=== PATIENT | female | born 1940 | race Caucasian/White ===

== ENCOUNTER → 2018-07-31 | Outpatient (REF) | payer MEDICARE ==
[~2018-07-31] MED LIST: AMITRIPTYLIN25 MG PO; AMLODIPINE5 MG PO; CHILD ASA81 MG OR; CURCUMIN 95500 MG; DITROPAN XL5 MG PO; FISH OIL1000 MG OR; LIPITOR10 M1 PO; LOSARTAN POT50 MG PO; MEDDOSEPAK PO; MELATONIN10 M1; METOPROLOL50 M1 PO; PROTONIX40 M2 PO; SINGULAIR10 MG PO; TAMOXIFEN10 MG OR
[2018-07-31 07:42] LABS: HEMATOCRIT 39.1 % (37.0-47.0); MEAN CELL VOLUME 90.7 fL CALC (80.0-100.0); MEAN CORPUSCULAR HGB 27.8 pG CALC (26.0-32.0); MEAN CORPUSCULAR HGB CONC 30.7 g/L CALC (32.0-36.0); RED BLOOD COUNT 4.31 mill/uL (4.20-5.60); RED CELL DISTRI WIDTH 15.7 % (11.5-15.5)
[2018-07-31 08:15] LABS: ALBUMIN 4.1 g/dL (3.2-5.0); ALKALINE PHOSPHATASE 85 u/l (38-126); ANION GAP 13 (6-22 (CALC)); BILIRUBIN, TOTAL 0.4 mg/dL (0.0-1.4); BUN 17 mg/dL (8-23); BUN/CREATININE RATIO 24 (12-20 (CALC)); CALCULATED LDLCHOLESTEROL 84 mg/dL (62-129 (CALC)); CARBON DIOXIDE 28 mmol/l (22-30); CHLORIDE 104 mmol/l (95-108); CHOLESTEROL HDL RATIO 3.5 (<4.4 (CALC)); CREATININE 0.7 mg/dL (0.5-1.0); GFR > 60 ML/MIN (>=60 (CALC)); GFR FOR AFR.AMER. > 60 ML/MIN (>=60 (CALC)); HDL CHOLESTEROL 51 mg/dL (>=40); POTASSIUM 4.3 mmol/l (3.5-5.1); SGOT/AST 24 u/l (9-36); SODIUM 141 mmol/l (137-146); TOTAL CHOLESTEROL 179 mg/dl (0-199); TOTAL PROTEIN 6.3 g/dL (6.3-8.2); TOTAL TRIGLYCERIDES 218 mg/dl (30-149); VLDL CHOLESTROL 44 mg/dl (0-48 (CALC))
[2018-07-31 08:46] LABS: TSH, 3RD GENERATION 3.59 uIU/mL (0.47 - 4.68)
== END | disposition home or self-care (01) ==
LOC: LAB 06:42
PROVIDERS: ATTEND Nurse Practitioner
DX: I10 Essential (primary) hypertension (principal)

== ENCOUNTER → 2021-01-24 | Outpatient (REF) | payer MEDICARE ==
[2021-01-24 10:43] LABS: HEMATOCRIT 41.6 % (37.0-47.0); HEMOGLOBIN 12.8 g/dl (12.0-16.0); MEAN CELL VOLUME 96.1 fL CALC (80.0-100.0); MEAN CORPUSCULAR HGB 29.6 pG CALC (26.0-32.0); MEAN CORPUSCULAR HGB CONC 30.8 g/dL CAL (32.0-36.0); NEUT# 7.48 thou/uL (2.00-7.15); RED BLOOD COUNT 4.33 mill/uL (4.20-5.60); RED CELL DISTRI WIDTH 14.7 % (11.5-15.5)
[2021-01-24 11:00] LABS: ALBUMIN 3.9 g/dL (3.2-5.0); ALKALINE PHOSPHATASE 71 u/l (38-126); ANION GAP 12 (6-22 (CALC)); BILIRUBIN, TOTAL 0.4 mg/dL (0.0-1.4); BUN 22 mg/dL (8-23); BUN/CREATININE RATIO 26 (12-20 (CALC)); CARBON DIOXIDE 29 mmol/l (22-30); CHLORIDE 100 mmol/l (95-108); CREATININE 0.9 mg/dL (0.5-1.0); GFR 60 ML/MIN (>=60 (CALC)); GFR FOR AFR.AMER. > 60 ML/MIN (>=60 (CALC)); POTASSIUM 4.8 mmol/l (3.5-5.1); SGOT/AST 21 u/l (9-36); SODIUM 136 mmol/l (137-146); TOTAL PROTEIN 6.5 g/dL (6.3-8.2)
== END | disposition home or self-care (01) ==
LOC: LAB 09:21
PROVIDERS: ATTEND Internal Medicine
DX: E53.8 Deficiency of other specified B group vitamins (principal); E78.2 Mixed hyperlipidemia

== ENCOUNTER 2022-04-26 14:11 | Emergency (ER) | payer MEDICARE ==
[~2022-04-26] VITALS: Ht 165.1 cm; Wt 95.5 kg
[2022-04-26 14:44] VITALS: BP 129/111
[2022-04-26 15:01] LABS: HEMATOCRIT 34.6 % (37.0-47.0); HEMOGLOBIN 11.1 g/dl (12.0-16.0); IMMATURE GRANULOCYTES 2.7 % (0.0-5.0); MEAN CELL VOLUME 92.8 fL CALC (80.0-100.0); MEAN CORPUSCULAR HGB 29.8 pG CALC (26.0-32.0); MEAN CORPUSCULAR HGB CONC 32.1 g/dL CAL (32.0-36.0); NEUT# 8.12 thou/uL (2.00-7.15); RED BLOOD COUNT 3.73 mill/uL (4.20-5.60); RED CELL DISTRI WIDTH 15.1 % (11.5-15.5)
[2022-04-26 15:21] LABS: ALBUMIN 4.2 g/dL (3.2-5.0); ALKALINE PHOSPHATASE 86 u/l (38-126); BILIRUBIN, TOTAL 0.5 mg/dL (0.0-1.4); BUN 19 mg/dL (8-23); BUN/CREATININE RATIO 18 (12-20 (CALC)); CHLORIDE 105 mmol/l (95-108); CREATININE 1.1 mg/dL (0.5-1.0); GFR FOR AFR.AMER. 58 ML/MIN (>=60 (CALC)); GFR OTHER RACES 48 ML/MIN (>=60 (CALC)); POTASSIUM 4.3 mmol/l (3.5-5.1); SGOT/AST 28 u/l (9-36); SODIUM 141 mmol/l (137-146)
[2022-04-26 15:27] LABS: ANION GAP 9 (6-22 (CALC)); CARBON DIOXIDE 31 mmol/l (22-30)
[2022-04-26 16:14] VITALS: BP 160/75
[2022-04-26 16:32] VITALS: BP 167/71
[2022-04-26 17:21] VITALS: BP 167/71
[2022-04-26] MEDS ORDERED: PREDNISONE50 MG PO (17:32)
== END 2022-04-26 17:24 | disposition home or self-care (01) ==
LOC: ED 14:11
PROVIDERS: Family Medicine
DX: R06.02 Shortness of breath (principal); R91.8 Other nonspecific abnormal finding of lung field; I11.0 Hypertensive heart disease with heart failure; I50.9 Heart failure, unspecified; E66.9 Obesity, unspecified; Z99.81 Dependence on supplemental oxygen
CPT/HCPCS: Q9967

== ENCOUNTER 2024-05-25 22:07 | Inpatient (IN) | payer MEDICARE ==
[~2024-05-25] VITALS: Ht 157.5 cm; Wt 85.6 kg
[~2024-05-25 22:07] MED LIST changes: +ADVAIR DISK1 INH; +ASPIRINCHW 81MG PO; +ATORVASTATIN CA10 MG PO; +COZAAR50 MG PO; +CVS MAGNESIUM500 MG; +ELAVIL25 M1 PO; +LASIX 20 MG TAB20 MG PO; +MELOXICAM7.5 MG PO; +METOPROLOL SUC200 MG PO; +OXY1; +PREDNISONE50 MG PO
--- NOTE | 2024-05-25 22:10 | NUR ---
PT TO RM 9 VIA WHEELCHAIR
[2024-05-25] MEDS ORDERED: methylPREDNISolone SODIUM SUCC 125 MG/2 ML SDV IV ONE (22:25)
[2024-05-25] MEDS ORDERED: FUROSEMIDE 40 MG/4 ML SDV IV ONE (22:25)
[2024-05-25] MEDS ORDERED: ALBUTEROL SULFATE 2.5 MG VIAL IN ONE (22:25)
[2024-05-25] MEDS ORDERED: IPRATROPIUM-Albuterol 0.5MG-2.5MG/3 ML NEB ONE (22:25)
[2024-05-25 22:31] VITALS: BP 149/79
[2024-05-25 22:46] VITALS: BP 129/94
[2024-05-25 22:47] LABS: BASO% 0.2 % (0-3); EOS% 0.5 % (0-8); HEMOGLOBIN 10.8 g/dl (12.0-16.0); IMMATURE GRANULOCYTES 1.4 % (0.0-5.0); LYMPH% 14.2 % (15-41); MEAN CELL VOLUME 93.6 fL CALC (80.0-100.0); MEAN CORPUSCULAR HGB 28.9 pG CALC (26.0-32.0); MEAN CORPUSCULAR HGB CONC 30.9 g/dL CAL (32.0-36.0); MONO% 11.7 % (2-13); NEUT# 6.59 thou/uL (2.00-7.15); RED BLOOD COUNT 3.74 mill/uL (4.20-5.60); RED CELL DISTRI WIDTH 15.2 % (11.5-15.5)
[2024-05-25 23:01] VITALS: BP 135/85
[2024-05-25 23:02] LABS: ALBUMIN 4.3 g/dL (3.2-5.0); ANION GAP 10 (6-22 (CALC)); BILIRUBIN, TOTAL 0.7 mg/dL (0.02-1.3); BUN 21 mg/dL (8-23); BUN/CREATININE RATIO 20 (12-20 (CALC)); CARBON DIOXIDE 29 mmol/l (22-30); CHLORIDE 106 mmol/l (95-108); ESTIMATED GFR 56 ML/MIN (>=90 (CALC)); POTASSIUM 4.4 mmol/l (3.5-5.1); SODIUM 140 mmol/l (137-146); TOTAL PROTEIN 7.1 g/dL (6.3-8.2)
[2024-05-25 23:10] LABS: INTERNATIONAL NORMALIZED RATIO 1.1 RATIO (0.7-1.3)
[2024-05-25] MEDS ORDERED: SODIUM CHLORIDE 0.9% 250 ML IV PRN (23:15)
[2024-05-25] MEDS ORDERED: DILTIAZEM HCL 125 MG in SODIUM CHLORIDE 0.9% 100 ML IV ONE (23:15)
[2024-05-25] MEDS ORDERED: AZITHROMYCIN 500 MG in SODIUM CHLORIDE 0.9% 500 ML IV ONE (23:15)
[2024-05-25] MEDS ORDERED: dilTIAZem HCL 50 MG/10 ML SDV IV ONE (23:15)
[2024-05-25] MEDS ORDERED: cefTRIAXone SODIUM 2 GM in SODIUM CHLORIDE 0.9% 100 ML IV ONE (23:15)
[2024-05-25 23:16] VITALS: BP 134/75
[2024-05-25 23:21] LABS: D-DIMER 0.95 mg/L (0.19-0.60)
[2024-05-25 23:23] LABS: PROTHROMBIN TIME 11.5 SECONDS (9.0-12.5)
[2024-05-25 23:26] LABS: ALKALINE PHOSPHATASE 116 u/l (38-126); SGOT/AST 53 u/l (9-36)
[2024-05-25 23:54] VITALS: BP 130/74
[2024-05-26] VITALS (266 sets, daily range): BP systolic 59–171; BP diastolic 35–131
[2024-05-26 00:04] LABS: TSH, 3RD GENERATION 4.49 uIU/mL (0.47 - 4.68)
--- NOTE | 2024-05-26 00:42 | NUR ---
PATIENT ASSISTED TO BATHROOM AT THIS TIME.
[2024-05-26] MEDS ORDERED: dilTIAZem HCL 50 MG/10 ML SDV IV ONE (01:20)
[2024-05-26] MEDS ORDERED: ONDANSETRON 4 MG/TAB ODT PO PRN (02:55)
[2024-05-26] MEDS ORDERED: ONDANSETRON HCl 4 MG/2 ML SDV IV PRN (02:55)
[2024-05-26] MEDS ORDERED: IBUPROFEN 800 MG/TAB PO PRN (02:55)
[2024-05-26] MEDS ORDERED: ALUM & MAG HYDROX-SIMETHICONE 30 ML PO PRN (02:55)
[2024-05-26] MEDS ORDERED: FAMOTIDINE 10MG/ML 2ML SDV IV PRN (02:55)
[2024-05-26] MEDS ORDERED: Polyethylene Glycol 3350 17 GM/PKT PO PRN (02:55)
--- NOTE | 2024-05-26 03:00 | NUR ---
PATIENT TO BE A HOLD IN ED, NO AVAILABLE ICU BEDS.
[2024-05-26] MEDS ORDERED: ENOXAPARIN SODIUM 80 MG/0.8 ML SYR SC SCH (03:47)
--- NOTE | 2024-05-26 05:24 | NUR ---
PATIENT RESTING IN BED, NAD. REMAINS ON 10MG/HR OF CARDIZEM. HR AFIB 90'S LOW 100'S
[2024-05-26] MEDS ORDERED: FUROSEMIDE 40 MG/4 ML SDV IV SCH (06:00)
--- NOTE | 2024-05-26 06:49 | NUR ---
PATIENT ASSITED TO BSC
--- NOTE | 2024-05-26 07:32 | NUR ---
assumed care. pt alert, oriented Xs 4, cadizem at 10 currently. Pt c/o difficultyresting but states she is breathign better.
--- NOTE | 2024-05-26 08:29 | NUR ---
pt AFib HR 90-112 cardizem to 15 mg
--- NOTE | 2024-05-26 10:40 | NUR ---
cardizem complete pt remains Afib, betweens 95-123. provider contacted, order to continue cardizem
[2024-05-26] MEDS ORDERED: SODIUM CHLORIDE 0.9% 100 ML IV ONE (10:54)
[2024-05-26] MEDS ORDERED: DILTIAZEM HCL 125 MG in SODIUM CHLORIDE 0.9% 100 ML IV PRN (11:00)
[2024-05-26] MEDS ORDERED: SODIUM CHLORIDE 0.9% 500 ML IV PRN (11:15)
--- NOTE | 2024-05-26 11:16 | NUR ---
pharmacy contacted for metoprolol. Currently unavailable in ED
[2024-05-26] MEDS ORDERED: METOPROLOL SUCCINATE 100 MG/TAB PO SCH (12:00)
[2024-05-26] MEDS ORDERED: MELOXICAM PO PRN (13:00)
--- NOTE | 2024-05-26 13:06 | NUR ---
DR FELIX AT BEDSIDE FOR EVALUATION
--- NOTE | 2024-05-26 13:41 | NUR ---
Pt alert, oriented XS 4. daughter at bedside. Pt with with no additional complaints at this time
[2024-05-26] MEDS ORDERED: LOSARTAN Potassium 50 MG/TAB PO SCH (15:00)
--- NOTE | 2024-05-26 18:42 | NUR ---
pt alert, oreientd XS 4 up to bedside commode with steady gait.
--- NOTE | 2024-05-26 19:15 | NUR ---
REPORT RECEIVED FROM Yair NEIL RN
--- NOTE | 2024-05-26 20:26 | NUR ---
PATIENT ARRIVED TO THE UNIT VIA STRETCHER ACCOMPANIED BY DALJIT CONROY. PATIENT AMBULATED FROM BED TO STRETCHER WITH MINIMAL ASSISTANCE AND WITHOUT USE OF CANE AT BEDSIDE.
--- NOTE | 2024-05-26 20:30 | NUR ---
PATIENT TO ICU ROOM 4 VIA STRETCHER. SHE AMBULATED FROM STRETCHER TO BED WITH STEADY GAIT. SHE IS NOTED A FIB IN THE 80S ON THE MONITOR. CARDIZEM NOTED RUNNING AT 10 AT THIS TIME. NO ACUTE DISTRESS NOTED. SHE DENIES ANY PAIN OR DISCOMFORT. SHE IS A/O X3. LUNGS CTA. BOWEL SOUNDS ACTIVE IN ALL FOUR QUADS. NO EDEMA NOTED. SKIN INTACT. PATIENT STATED SHE HAS NOT SLEPT IN 3 DAYS, WILL CONTACT THE DOCTOR FOR SLEEP AID. BED LOCKED, IN LOW POSITION. CALL LIGHT WITHIN REACH.
--- NOTE | 2024-05-26 20:35 | NUR ---
CARDIZEM DECREASED TO 5.
--- NOTE | 2024-05-26 20:38 | NUR ---
PATIENT TO ICU ROOM 4
--- NOTE | 2024-05-26 20:50 | NUR ---
CARDIZEM TURNED OFF.
[2024-05-26] MEDS ORDERED: ATORVASTATIN CALCIUM 10 MG/TAB PO SCH (21:00)
[2024-05-26] MEDS ORDERED: FLUTICASONE/SALMETEROL 250 MCG/50 MCG PER DOSE INH IN SCH (21:00)
--- NOTE | 2024-05-26 22:00 | NUR ---
PATIENT RECEIVED SLEEPING MEDICATIONS. CARDIZEM DRIP STILL OFF AT THIS TIME. PATIENT IS AFIB CONTROLLED AT THIS TIME. NO ACUTE DISTRESS NOTED. BED LOCKED. IN LOW POSITION. CALL LIGHT WITHIN REACH.
[2024-05-26] MEDS ORDERED: Zaleplon 5 MG/CAP PO PRN (23:35)
[2024-05-27] VITALS (208 sets, daily range): BP systolic 69–174; BP diastolic 45–151
[2024-05-27] MEDS ORDERED: AZITHROMYCIN 500 MG in SODIUM CHLORIDE 0.9% 250 ML IV SCH
--- NOTE | 2024-05-27 | NUR ---
PATIENT SLEEPING AT THIS TIME. SHE AFIB CONTROLLED AT THIS TIME. NO ACUTE DISTRESS NOTED. BED LOCKED IN LOW POSITION CALL LIGHT WITHIN REACH.
--- NOTE | 2024-05-27 04:00 | NUR ---
PATIENT SLEEPING WITH NO ACUTE DISTRESS NOTED.
[2024-05-27 05:43] LABS: BASO% 0.2 % (0-3); HEMATOCRIT 33.9 % (37.0-47.0); HEMOGLOBIN 10.7 g/dl (12.0-16.0); IMMATURE GRANULOCYTES 1.5 % (0.0-5.0); LYMPH% 8.7 % (15-41); MEAN CELL VOLUME 93.6 fL CALC (80.0-100.0); MEAN CORPUSCULAR HGB 29.6 pG CALC (26.0-32.0); MEAN CORPUSCULAR HGB CONC 31.6 g/dL CAL (32.0-36.0); MONO% 12.3 % (2-13); NEUT# 9.58 thou/uL (2.00-7.15); NEUT% 77.3 % (42-76); RED BLOOD COUNT 3.62 mill/uL (4.20-5.60); RED CELL DISTRI WIDTH 15.4 % (11.5-15.5)
[2024-05-27 05:54] LABS: ALBUMIN 3.8 g/dL (3.2-5.0); BILIRUBIN, TOTAL 0.6 mg/dL (0.02-1.3); CREATININE 0.8 mg/dL (0.5-1.0); POTASSIUM 4.3 mmol/l (3.5-5.1); TOTAL PROTEIN 6.2 g/dL (6.3-8.2)
--- NOTE | 2024-05-27 07:20 | NUR ---
PT LAYING IN BED WATCHING TV, PT IS A&O X3, PUPILS PERRR, RESP. EVEN AND UNLABORED, LUNGS ARE CLEAR, ABD DISTENDED AND SOFT WITH ACTIVE BOWEL SOUNDS, STRONG RADIAL PULSES, WEAK PEDAL PULSES, 20G RAC IV SL, 20G LAC IV SL, NORMAL S1 S2 HEART SOUNDS, TELE MONITOR IN PLACE, SAFETY MEASURES REINFORCED, CALL SALTER WITHIN REACH
--- NOTE | 2024-05-27 07:21 | NUR ---
REPORT GIVENT TO ONCOMING NURSE.
[2024-05-27] MEDS ORDERED: AMITRIPTYLINE HCL 25 MG TAB PO SCH (09:00)
[2024-05-27] MEDS ORDERED: METOPROLOL SUCCINATE 100 MG/TAB PO SCH (09:00)
[2024-05-27] MEDS ORDERED: ASPIRIN 81 MG/TAB PO SCH (09:00)
[2024-05-27] MEDS ORDERED: MONTELUKAST SODIUM 10 MG/TAB PO SCH (09:00)
[2024-05-27] MEDS ORDERED: FUROSEMIDE 40 MG/TAB PO SCH (09:00)
[2024-05-27] MEDS ORDERED: FUROSEMIDE 20 MG/TAB PO SCH (09:00)
--- NOTE | 2024-05-27 12:00 | NUR ---
PT SITTING ON THE SIDE OF THE BED TALKING TO VISITORS, NO S/S OF DISTRESS AT THIS TIME, CALL SALTER WITHIN REACH
--- NOTE | 2024-05-27 16:00 | NUR ---
PT SITTING UP ON THE SIDE OF THE BED TALKING TO VISITOR, PT DENIES ANY NEEDS AT THIS TIME, CALL SALTER WITHIN REACH
--- NOTE | 2024-05-27 18:07 | NUR ---
pt arrive to unit via staff/wheelchair transport, pt has her cane with her, x1 assist to standing scale then to the bed with no complaints.
--- NOTE | 2024-05-27 18:12 | NUR ---
PT IS AOX3, RESPIRATIONS ARE EVEN AND UNLABORED ON ROOM AIR, LUNGS ARE DIM AT BILATERAL BASES, CLEAR UPPER RIGHT/UPPER LEFT LOBES. BOWEL SOUNDS ARE ACTIVE, PEDAL; PULSES ARE PALPABLE TO TOUCH, PT DENIES PAIN AT THIS TIME.
[2024-05-27] MEDS ORDERED: APIXABAN BASE 5 MG TAB PO SCH (22:00)
[2024-05-28] VITALS (8 sets, daily range): BP systolic 123–154; BP diastolic 51–67
[2024-05-28 05:17] LABS: BASO% 0.2 % (0-3); HEMATOCRIT 30.7 % (37.0-47.0); HEMOGLOBIN 9.7 g/dl (12.0-16.0); IMMATURE GRANULOCYTES 0.9 % (0.0-5.0); LYMPH% 21.5 % (15-41); MEAN CELL VOLUME 95.6 fL CALC (80.0-100.0); MEAN CORPUSCULAR HGB 30.2 pG CALC (26.0-32.0); MEAN CORPUSCULAR HGB CONC 31.6 g/dL CAL (32.0-36.0); MONO% 14.7 % (2-13); NEUT# 6.41 thou/uL (2.00-7.15); NEUT% 61.7 % (42-76); RED BLOOD COUNT 3.21 mill/uL (4.20-5.60); RED CELL DISTRI WIDTH 15.7 % (11.5-15.5)
[2024-05-28 05:34] LABS: CREATININE 0.8 mg/dL (0.5-1.0)
--- NOTE | 2024-05-28 07:00 | NUR ---
REPORT RECEIVED FROM LUZ. PT SITTING UP AT SIDE OF BED WITHOUT COMPLAINTS. HOPING TO GO HOME TODAY. VSS AND PT WITHOUT COMPLAINTS. COFFEE GIVEN AT REQUEST. TELEMETRY [id number]. WILL MONITOR. CALL LIGHT IN REACH.
[2024-05-28] MEDS ORDERED: METOPROLOL SUCCINATE 100 MG/TAB PO SCH ×2 (09:00)
--- NOTE | 2024-05-28 10:27 | NUR ---
CONTACTED DR GALO'S OFFICE IN REFERENCE TO A CARDIOLOGY CONSULT. I SPOKE WITH EDWARD AT 1027 HRS.
[2024-05-28] MEDS ORDERED: FUROSEMIDE 40 MG/4 ML SDV IV SCH (11:00)
--- NOTE | 2024-05-28 18:29 | NUR ---
PT RESTED IN BED SITTING UP AND VISITED WITH FRIENDS. AMBULATED TO BR TO VOID FREQUENTLY. TELE MAINTAINED NSR 80'S AND PT DENIED SOB/DYSPNEA ALL SHIFT. NO CHANGES TO REPORT. SHIFT REPORT TO ONCOMING SHIFT.
[2024-05-28] MEDS ORDERED: AZITHROMYCIN 250 MG/TAB PO SCH (21:00)
[2024-05-29 05:27] VITALS: BP 131/71
[2024-05-29 05:41] LABS: BASO% 0.2 % (0-3); EOS% 1.2 % (0-8); HEMATOCRIT 36.4 % (37.0-47.0); LYMPH% 16.1 % (15-41); MEAN CELL VOLUME 93.8 fL CALC (80.0-100.0); MEAN CORPUSCULAR HGB 30.2 pG CALC (26.0-32.0); MEAN CORPUSCULAR HGB CONC 32.1 g/dL CAL (32.0-36.0); NEUT# 6.45 thou/uL (2.00-7.15); NEUT% 67.5 % (42-76); RED BLOOD COUNT 3.88 mill/uL (4.20-5.60); RED CELL DISTRI WIDTH 15.4 % (11.5-15.5)
[2024-05-29 05:55] LABS: HEMOGLOBIN 11.7 g/dl (12.0-16.0)
[2024-05-29 06:01] LABS: ALBUMIN 4.2 g/dL (3.2-5.0); BILIRUBIN, TOTAL 0.6 mg/dL (0.02-1.3); CREATININE 1.2 mg/dL (0.5-1.0); MAGNESIUM 2.2 mg/dL (1.6-2.3); POTASSIUM 3.9 mmol/l (3.5-5.1); TOTAL PROTEIN 6.6 g/dL (6.3-8.2)
[2024-05-29 07:01] VITALS: BP 154/73
--- NOTE | 2024-05-29 07:16 | NUR ---
PT AOX4 SITTING UP AT SITE OF BED, RESPIRATIONS ARE EVEN AND UNLABORED ON ROOM AIR, LUNGS DIM AT RIGHT LOWER BASE, CLEAR AT LEFT LOWER BASE AND CLEAR AT BILATERAL UPPER BASES, BOWEL SOUNDS ACTIVE, PEDAL PULSES PALPABLE TO TOUCH WITH +1 NON PITTING EDEMA NOTED AT BILATERAL LOWER LEGS, PT DENIES PAIN AT THIS TIME.
[2024-05-29 10:25] VITALS: BP 126/70
[2024-05-29] MEDS ORDERED: ELIQUIS5 MG PO (10:52)
[2024-05-29] MEDS ORDERED: LASIX40 MG PO (10:53)
--- NOTE | 2024-05-29 11:43 | NUR ---
PT SITTING UP AT SIDE OF BED IN NO ACUTE DISTRESS AT THIS TIME.
--- NOTE | 2024-05-29 12:56 | NUR ---
REVIEWED DISCHARGE INSTRUCTIONS WITH PT, MARLEY' IV, REMOVED TELE BOX AND PLACED TELE IN RETURN BIN BY RUFINO. PT AWAITING RIDE.
--- NOTE | 2024-05-29 13:27 | NUR ---
PT LEFT THE UNIT VIA STAFF/WHEELCHAIR TRANSPORT.
== END 2024-05-29 13:21 | disposition home or self-care (01) | DRG 308 ==
LOC: ED 22:07 → ED-I 05-26 02:31 → ED 05-26 02:55 → ED-I 05-26 02:56 → MS2 05-26 02:56 → ED-I 05-26 02:57 → ICU 05-26 14:59 → MS2 05-27 18:02
PROVIDERS: Family Medicine; Nurse Practitioner Family; ADMIT Internal Medicine; ATTEND Internal Medicine
DX: I48.92 Unspecified atrial flutter (principal); I50.31 Acute diastolic (congestive) heart failure; J96.11 Chronic respiratory failure with hypoxia; I48.91 Unspecified atrial fibrillation; J43.9 Emphysema, unspecified; R91.1 Solitary pulmonary nodule; I11.0 Hypertensive heart disease with heart failure; I25.10 Atherosclerotic heart disease of native coronary artery without angina pectoris; K21.9 Gastro-esophageal reflux disease without esophagitis; G47.33 Obstructive sleep apnea (adult) (pediatric); Z86.718 Personal history of other venous thrombosis and embolism; Z86.711 Personal history of pulmonary embolism; Z99.81 Dependence on supplemental oxygen; Z85.3 Personal history of malignant neoplasm of breast; Z87.891 Personal history of nicotine dependence; Z95.5 Presence of coronary angioplasty implant and graft; Z20.822 Contact with and (suspected) exposure to COVID-19
CPT/HCPCS: J0456; J0696; J1650; J1940; Q9967